=== PATIENT | male | born 1950 | race Caucasian/White ===

== ENCOUNTER 2021-06-09 10:41 | Outpatient (CLI) | payer MEDICARE, SELFPAY ==
[2021-06-09 18:37] LABS: Hematocrit 25.9 % (42.0-52.0); Hemoglobin 7.9 g/dL (14.0-18.0); Mean Corpuscular HGB Conc 30.5 g/dl (32-36); Mean Corpuscular Hemoglobin 35.7 pg (26-34); Mean Corpuscular Volume 117.2 fl (80-100); Mean Platelet Volume 11.4 fl (7.4-10.4); Platelet Count Result 189 k/mm3 (150-375); Red Blood Count 2.21 M/mm3 (4.6-6.20); White Blood Count 2.7 K/mm3 (4.5-10.0)
[2021-06-09 18:59] LABS: Hemoglobin A1C 5.4 % (<5.7)
[2021-06-09 19:03] LABS: Alanine Aminotransferase 27 U/L (4-50); Alkaline Phosphatase 68 U/L (38-126); Anion Gap 9 mmol/L (8-16); Aspartate Amino Transferase 34 U/L (17-59); Bilirubin,Total 0.7 mg/dL (0.2-1.3); Blood Urea Nitrogen 25 mg/dL (9-20); Calcium 9.1 mg/dL (8.4-10.2); Carbon Dioxide 26 mmol/L (22-30); Chloride 102 mmol/L (98-107); Cholesterol 90 mg/dL (0-200); Estimated Glomerular Filt Rate > 60; Glucose 125 mg/dL (65-110); HDL Direct 21 mg/dL; Potassium 4.4 mmol/L (3.4-5.0); Sodium 137 mmol/L (137-145); Triglycerides 170 mg/dL (<150)
[2021-06-09 19:04] LABS: Albumin Level > 6.0 g/dL (3.5-5.1)
[2021-06-09 19:10] LABS: LDL Cholesterol Direct 47 mg/dL
[2021-06-09 19:30] LABS: Prostate Specific Antigen 1.4 ng/mL (< OR = 4.0)
[2021-06-12 14:02] LABS: Amphetamines NEGATIVE ng/mL (<500); Barbiturates NEGATIVE ng/mL (<300); Benzodiazepines NEGATIVE ng/mL (<100); Cocaine Metabolite NEGATIVE ng/mL (<100); Codeine NEGATIVE ng/mL (<50); Hydrocodone 1500 ng/mL (<50); Hydromorphone 290 ng/mL (<50); Marijuana Metabolite NEGATIVE ng/mL (<20); Methadone Metabolite NEGATIVE ng/mL (<100); Morphine NEGATIVE ng/mL (<50); Norhydrocodone 1600 ng/mL (<50); Opiates POSITIVE ng/mL (<100); Oxidant NEGATIVE mcg/mL (<200); pH 6.5 (4.5-9.0)
== END 2021-06-09 10:42 | disposition home or self-care (01) ==
PROVIDERS: PCP Family Medicine; Visit Provider Family Medicine
DX: D64.9 Anemia, unspecified (principal); F41.9 Anxiety disorder, unspecified; K14.6 Glossodynia; K21.9 Gastro-esophageal reflux disease without esophagitis; N52.9 Male erectile dysfunction, unspecified; R53.83 Other fatigue; S00.522A Blister (nonthermal) of oral cavity, initial encounter; X58.XXXA Exposure to other specified factors, initial encounter; Z12.5 Encounter for screening for malignant neoplasm of prostate
CPT/HCPCS: 36415; 80053; 80061; 80299; 83036; 84153; 85027; G0103

== ENCOUNTER 2021-06-24 12:15 | Outpatient (CLI) | payer MEDICARE, SELFPAY ==
[2021-06-24 19:11] LABS: Basophils Percent Auto 0.3 % (0.2-1.2); Eosinophils Percent Auto 0.9 % (0-4.4); Hematocrit 28.2 % (42.0-52.0); Hemoglobin 8.5 g/dL (14.0-18.0); Immature Granulocyte Absolute 0.16 K/mm3 (0.00-0.031); Lymphocytes Absolute Auto 0.62 K/mm3 (0.9-3.2); Lymphocytes Percent Auto 19.3 % (18.3-44.2); Mean Corpuscular HGB Conc 30.1 g/dl (32-36); Mean Corpuscular Hemoglobin 35.4 pg (26-34); Mean Corpuscular Volume 117.5 fl (80-100); Mean Platelet Volume 11.4 fl (7.4-10.4); Monocytes Absolute Auto 0.6 K/mm3 (0.1-0.6); Monocytes Percent Auto 18.9 % (2.6-8.5); Neutrophils Absolute Auto 1.8 K/mm3 (1.3-6.7); Neutrophils Percent Auto 55.6 % (45.5-73.1); Platelet Count Result 172 k/mm3 (150-375); Red Cell Distribution Width 17.9 % (11.5-14.5); White Blood Count 3.2 K/mm3 (4.5-10.0)
[2021-06-24 19:24] LABS: Iron 130 ug/dL (49-181)
[2021-06-24 19:35] LABS: Percent Iron Saturation 37 % (20-50)
[2021-06-24 20:30] LABS: Folic Acid 15.5 ng/mL (2.76->20)
[2021-06-26 13:27] LABS: Erythropoietin (EPO) 244.4 mIU/mL (2.6-18.5)
== END 2021-06-24 12:16 | disposition home or self-care (01) ==
PROVIDERS: PCP Family Medicine; Visit Provider Family Medicine
DX: D64.9 Anemia, unspecified (principal); D72.819 Decreased white blood cell count, unspecified
CPT/HCPCS: 36415; 82607; 82668; 82746; 83540; 83550; 85025

== ENCOUNTER 2021-07-17 11:33 | Outpatient (CLI) | payer MEDICARE, SELFPAY ==
[2021-07-17 18:30] LABS: Basophils Percent Auto 0.5 % (0.2-1.2); Eosinophils Percent Auto 0.5 % (0-4.4); Hematocrit 29.6 % (42.0-52.0); Hemoglobin 8.9 g/dL (14.0-18.0); Immature Granulocyte Absolute 0.35 K/mm3 (0.00-0.031); Lymphocytes Absolute Auto 0.63 K/mm3 (0.9-3.2); Lymphocytes Percent Auto 14.5 % (18.3-44.2); Mean Corpuscular HGB Conc 30.1 g/dl (32-36); Mean Corpuscular Hemoglobin 34.8 pg (26-34); Mean Corpuscular Volume 115.6 fl (80-100); Mean Platelet Volume 12.2 fl (7.4-10.4); Monocytes Absolute Auto 0.5 K/mm3 (0.1-0.6); Neutrophils Absolute Auto 2.8 K/mm3 (1.3-6.7); Neutrophils Percent Auto 64.5 % (45.5-73.1); Platelet Count Result 215 k/mm3 (150-375); Red Blood Count 2.56 M/mm3 (4.6-6.20); Red Cell Distribution Width 18.3 % (11.5-14.5); White Blood Count 4.4 K/mm3 (4.5-10.0)
[2021-07-17 19:45] LABS: Ovalocytes 1+ (NORMAL); Platelet Estimate Adequate (Adequate)
== END 2021-07-17 11:34 | disposition home or self-care (01) ==
PROVIDERS: PCP Family Medicine; Visit Provider Family Medicine
DX: D72.819 Decreased white blood cell count, unspecified (principal); D64.9 Anemia, unspecified
CPT/HCPCS: 36415; 85025

== ENCOUNTER 2021-08-05 07:37 | Outpatient (CLI) | payer MEDICARE, SELFPAY ==
[2021-08-05 17:53] LABS: Hematocrit 29.3 % (42.0-52.0); Hemoglobin 8.8 g/dL (14.0-18.0); Mean Corpuscular Hemoglobin 34.8 pg (26-34); Mean Corpuscular Volume 115.8 fl (80-100); Mean Platelet Volume 12.1 fl (7.4-10.4); Platelet Count Result 183 k/mm3 (150-375); Red Blood Count 2.53 M/mm3 (4.6-6.20); Red Cell Distribution Width 19.4 % (11.5-14.5); White Blood Count 2.8 K/mm3 (4.5-10.0)
[2021-08-05 18:11] LABS: CRP 0.6 mg/dL (<1.0)
[2021-08-05 18:23] LABS: Erythrocyte Sedimentation Rate 33 mm/hr (0-20)
[2021-08-08 09:16] LABS: ANA Cascade Screen Negative (Negative)
== END 2021-08-05 07:38 | disposition home or self-care (01) ==
PROVIDERS: PCP Family Medicine; Visit Provider Family Medicine
DX: D72.819 Decreased white blood cell count, unspecified (principal); R21 Rash and other nonspecific skin eruption; D64.9 Anemia, unspecified; K13.70 Unspecified lesions of oral mucosa
CPT/HCPCS: 36415; 85027; 85652; 86038; 86140

== ENCOUNTER 2021-11-04 07:58 | Outpatient (CLI) | payer MEDICARE, SELFPAY ==
[2021-11-04 17:55] LABS: Basophils Percent Auto 0.7 % (0.2-1.2); Eosinophils Percent Auto 0.7 % (0-4.4); Hematocrit 28.7 % (42.0-52.0); Hemoglobin 8.3 g/dL (14.0-18.0); Immature Granulocyte Absolute 0.14 K/mm3 (0.00-0.031); Immature Granulocyte Percent A 5.2 % (0-0.5); Lymphocytes Absolute Auto 0.51 K/mm3 (0.9-3.2); Lymphocytes Percent Auto 18.9 % (18.3-44.2); Mean Corpuscular HGB Conc 28.9 g/dl (32-36); Mean Corpuscular Hemoglobin 34.7 pg (26-34); Mean Corpuscular Volume 120.1 fl (80-100); Mean Platelet Volume 11.5 fl (7.4-10.4); Monocytes Absolute Auto 0.6 K/mm3 (0.1-0.6); Monocytes Percent Auto 20.4 % (2.6-8.5); Neutrophils Absolute Auto 1.5 K/mm3 (1.3-6.7); Neutrophils Percent Auto 54.1 % (45.5-73.1); Platelet Count Result 191 k/mm3 (150-375); Red Blood Count 2.39 M/mm3 (4.6-6.20); Red Cell Distribution Width 19.6 % (11.5-14.5); White Blood Count 2.7 K/mm3 (4.5-10.0)
== END 2021-11-04 07:59 | disposition home or self-care (01) ==
LOC: ANHBWCLAB 07:59
PROVIDERS: PCP Family Medicine; Visit Provider Family Medicine
DX: D64.9 Anemia, unspecified (principal)
CPT/HCPCS: 36415; 85025

== ENCOUNTER 2021-12-22 10:47 | Outpatient (CLI) | payer MEDICARE, SELFPAY ==
[2021-12-22 19:06] LABS: Basophils Percent Auto 0.4 % (0.2-1.2); Eosinophils Percent Auto 0.8 % (0-4.4); Hematocrit 30.6 % (42.0-52.0); Hemoglobin 9.2 g/dL (14.0-18.0); Immature Granulocyte Absolute 0.14 K/mm3 (0.00-0.031); Immature Granulocyte Percent A 5.8 % (0-0.5); Immature Reticulocyte Fraction 26.4 % (3.0-15.9); Lymphocytes Absolute Auto 0.49 K/mm3 (0.9-3.2); Lymphocytes Percent Auto 20.2 % (18.3-44.2); Mean Corpuscular HGB Conc 30.1 g/dl (32-36); Mean Corpuscular Hemoglobin 34.8 pg (26-34); Mean Corpuscular Volume 115.9 fl (80-100); Mean Platelet Volume 11.6 fl (7.4-10.4); Monocytes Absolute Auto 0.6 K/mm3 (0.1-0.6); Monocytes Percent Auto 22.7 % (2.6-8.5); Neutrophils Absolute Auto 1.2 K/mm3 (1.3-6.7); Neutrophils Percent Auto 50.1 % (45.5-73.1); Platelet Count Result 218 k/mm3 (150-375); Red Blood Count 2.64 M/mm3 (4.6-6.20); Red Cell Distribution Width 17.8 % (11.5-14.5); Reticulocyte Hemoglobin Conten 34.3 pg (28.2-35.7); Reticulocyte Percent 2.56 % (0.7-4.3); Reticulocytes Absolute 0.07 B/L (32.2-175.7); White Blood Count 2.4 K/mm3 (4.5-10.0)
[2021-12-24 11:43] LABS: Haptoglobin <8 mg/dL (43-212)
[2021-12-30 11:56] LABS: Reference Lab Test Result Negative
== END 2021-12-22 10:48 | disposition home or self-care (01) ==
PROVIDERS: PCP Family Medicine; Visit Provider Family Medicine
DX: D64.9 Anemia, unspecified (principal); D72.819 Decreased white blood cell count, unspecified
CPT/HCPCS: 36415; 83010; 85025; 85046; 86880

== ENCOUNTER 2022-04-13 08:39 | Outpatient (CLI) | payer MEDICARE, SELFPAY ==
--- NOTE | ~2022-04-13 | XR_ITS ---
EXAMINATION: XR chest 2V DATE: 04/13/2022 09:09 INDICATION: Abnormal weight loss TECHNIQUE: PA and lateral views of the chest were obtained. COMPARISON: None FINDINGS: The lungs are clear with no focal airspace opacities, pulmonary edema, pleural effusion or pneumothor ax. The cardiomediastinal silhouette is normal. Multiple healed old bilateral rib fractures. Reverse right total shoulder arthroplasty. Postoperative changes at the cervical spine with anterior spinal f usion with anterior plate and screw fixation at a couple levels the mid and lower cervical spine. Sev ere mid thoracic spondylosis with mild anterior wedging of a few mid and lower thoracic vertebral bod ies. IMPRESSION: 1. No acute cardiopulmonary disease. Reviewed, dictated and finalized at location A.
[2022-04-13 18:41] LABS: Hematocrit 27.9 % (42.0-52.0); Hemoglobin 8.2 g/dL (14.0-18.0); Mean Corpuscular HGB Conc 29.4 g/dl (32-36); Mean Corpuscular Hemoglobin 34.7 pg (26-34); Mean Corpuscular Volume 118.2 fl (80-100); Mean Platelet Volume 12.1 fl (7.4-10.4); Platelet Count Result 163 k/mm3 (150-375); Red Blood Count 2.36 M/mm3 (4.6-6.20); Red Cell Distribution Width 19.1 % (11.5-14.5); White Blood Count 2.9 K/mm3 (4.5-10.0)
[2022-04-13 19:22] LABS: Hepatitis B Surface Antigen Negative (Negative)
[2022-04-13 19:28] LABS: HAV RESULT Negative (Negative); Hepatitis B Core IgM Result Negative (Negative)
[2022-04-13 19:40] LABS: Hepatitis C Virus Antibody Negative (Negative)
[2022-04-13 19:51] LABS: Vitamin D 25 Hydroxy 65.4 ng/mL
[2022-04-13 20:38] LABS: Anisocytosis 2+ (NORMAL); Band Neutrophils Percent 12 % (0-6); Basophils Absolute Manual 0.02 K/mm3 (0.0-0.1); Basophils Percent Manual 1 % (0-1); Lymphocytes Absolute Manual 1.27 K/mm3 (1.1-4.5); Monocytes Absolute Manual 0.23 K/mm3 (0.1-0.90); Monocytes Percent Manual 8 % (3-9); Neutrophils Absolute Manual 1.36 K/mm3 (1.3-6.7); Neutrophils Percent Manual 35 % (46-73); Platelet Estimate Adequate (Adequate); Total Cells Counted 100
[2022-04-15 15:18] LABS: HIV 1 2 Ag Ab 4th Gen w Rflxs Non-reactive (Non-reactive)
[2022-04-16 15:49] LABS: Testosterone Free 38.1 pg/mL (30.0-135.0); Testosterone Total 254 ng/dL (250-1100)
== END 2022-04-13 08:40 | disposition home or self-care (01) ==
PROVIDERS: PCP Family Medicine; Visit Provider Family Medicine
DX: R63.4 Abnormal weight loss (principal); R53.1 Weakness; R53.83 Other fatigue; D64.9 Anemia, unspecified; Z79.899 Other long term (current) drug therapy
CPT/HCPCS: 36415; 71046; 80074; 82306; 84402; 84403; 84443; 85025; 87389

== ENCOUNTER 2022-05-09 14:09 | Emergency (ER) | payer MEDICARE, SELFPAY ==
[2022-05-09 14:13] VITALS: BP 144/71; PULSE 76; RESP 16; TEMP 36.3; O2SAT 99
--- NOTE | 2022-05-09 14:13 | ED.DENTAL ---
HPI - Dental/Oral General Chief complaint: Ear Stated complaint: under tongue right side hard lump Time Seen by Provider: 05/09/22 14:13 Source: patient and RN notes reviewed History of Present Illness HPI Narrative: Patient 71-year-old male presents the urgent care with complaints of a hard painful lump under the right side of the tongue. Patient states is been there approximately 2 weeks and has not changed in size. States that he is having a lot of pain when swallowing or speaking. Patient has used lidocaine on the area. Denies of any recent dental work but states he has had a tooth pulled within the last few months. Patient has not seen a dentist since then. Denies of any fevers. Denies of any bad taste in the mouth. Denies any known injury to the tongue. No other acute complaints. No acute distress noted. Patient aware of the plan of care. Some parts of this dictation were generated by voice recognition software and may contain typographical and/or grammatical inaccuracies. Related Data Home Medications Medication Instructions Recorded Confirmed hydrocodone 10 mg-acetaminophen 2 tablet PO Q6H PRN 07/16/19 12/22/21 325 mg tablet bupropion HCl 150 mg 24 hr tablet, 150 mg PO QAM 08/20/19 12/22/21 extended release duloxetine 60 mg capsule,delayed 60 mg PO DAILY 08/20/19 12/22/21 release metoclopramide HCl 10 mg tablet 10 mg PO Q6H PRN Nausea And 08/20/19 12/22/21 Vomiting tizanidine 4 mg tablet 4 mg PO TID PRN Muscle Spasticity 08/20/19 12/22/21 Allergies Allergy/AdvReac Type Severity Reaction Status Date / Time No Known Allergies Allergy Verified 05/09/22 14:18 Review of Systems Review of Systems: CONSTITUTIONAL: Denies fever, chills, or sweats. EYES: Denies visual changes, redness, or discharge. ENT: Denies rhinorrhea, congestion, sore throat, or otalgia. Reports of a painful sore under the tongue CARDIOVASCULAR: Denies chest pain, palpitations, or edema. RESPIRATORY: Denies cough or dyspnea. GASTROINTESTINAL: Denies abdominal pain, nausea, vomiting, or diarrhea. GENITOURINARY: Denies dysuria or hematuria. SKIN: Denies rash or itching. MUSCULOSKELETAL: Denies back pain, joint pain, or myalgia. NEUROLOGIC: Denies headache, numbness, or weakness. All other systems reviewed are negative, except as documented in HPI. [facility] [place] Past Medical History Medical History Anemia 73.09 Anxiety Anxiety and depression Arthritis Encounter for long-term (current) use of other medications Erectile dysfunction Fatigue GERD (gastroesophageal reflux disease) Hypersomnolence Surgical History Surgical History H/O cervical spine surgery History of lumbar spinal fusion History of right shoulder replacement History of total right knee replacement Hx of cholecystectomy Family History Family History Mother Family history of malignant neoplasm Grandparent Family history of malignant neoplasm Sibling Family history of malignant neoplasm Father Heart failure Social History Social History Smoking packs per day: 1 Smoking cigarettes per day: 20.0 Years smoked: 12 Smoking pack-years: 12.00 Smoking status: Former smoker Second hand tobacco smoke exposure: No Smoking end date: 08/08/78 Alcohol intake: current Substance use: never Comments At the time of my signature, I reviewed and agree with the nursing past medical, surgical, social, and family history. There is no relevant family history pertinent to the patient complaint. Exam Narrative: GENERAL: This is a well-nourished, well-developed patient, in no apparent distress. HEAD: normocephalic, atraumatic. EYES: PERRL. Sclera clear/white. Vision is grossly intact. EARS: External ears normal NOSE: External nose normal
== END 2022-05-09 14:32 | disposition home or self-care (01) ==
PROVIDERS: Emergency Provider Nurse Practitioner Family; PCP Family Medicine
DX: K14.6 Glossodynia (principal); M19.90 Unspecified osteoarthritis, unspecified site; K21.9 Gastro-esophageal reflux disease without esophagitis; F41.9 Anxiety disorder, unspecified; F32.A Depression, unspecified
CPT/HCPCS: 99211; G0463

== ENCOUNTER 2022-05-11 08:27 | Outpatient (CLI) | payer MEDICARE, SELFPAY ==
[2022-05-11 18:33] LABS: Basophils Percent Auto 0.5 % (0.2-1.2); Eosinophils Percent Auto 0.5 % (0-4.4); Hematocrit 26.9 % (42.0-52.0); Immature Granulocyte Absolute 0.09 K/mm3 (0.00-0.031); Immature Granulocyte Percent A 4.4 % (0-0.5); Immature Platelet Fraction Pct 9.8 % (0.9-11.2); Lymphocytes Absolute Auto 0.44 K/mm3 (0.9-3.2); Lymphocytes Percent Auto 21.6 % (18.3-44.2); Mean Corpuscular HGB Conc 29.7 g/dl (32-36); Mean Corpuscular Hemoglobin 35.6 pg (26-34); Mean Corpuscular Volume 119.6 fl (80-100); Mean Platelet Volume 11.7 fl (7.4-10.4); Monocytes Absolute Auto 0.5 K/mm3 (0.1-0.6); Monocytes Percent Auto 22.5 % (2.6-8.5); Neutrophils Percent Auto 50.5 % (45.5-73.1); Platelet Count Result 148 k/mm3 (150-375); Red Blood Count 2.25 M/mm3 (4.6-6.20)
[2022-05-11 18:37] LABS: Appearance Urine Clear (Clear); Bilirubin Urine 1+ (Negative); Blood Urine Negative (Negative); Color Urine Yellow (Yellow); Glucose Urine UA Negative (Negative); Ketones Urine Trace mg/dL (Negative); Leukocyte Esterase Ur Negative LEU/UL (NEGATIVE); Nitrate Urine Negative (Negative); Protein Urine 1+ mg/dL (Negative); Specific Grav Ur 1.025 (1.001-1.035); Urobilinogen Urine 0.2 mg/dL (<2.0); pH Urine 5.5 (5.0-9.0)
[2022-05-11 18:45] LABS: Mucus Urine Rare /lpf; RBC Urine 0-2 /hpf (0-2); Squamous Epithelial Cell Urine Rare /hpf (Few); WBC Urine 0-3 /hpf (0-3)
[2022-05-11 18:46] LABS: Add Urine Microscopic? YES; CRP < 0.5 mg/dL (<1.0); Lactate Dehydrogenase 322 U/L (120-246)
[2022-05-11 19:23] LABS: Anisocytosis 2+ (NORMAL); Hypochromasia 1+ (NORMAL)
[2022-05-11 19:24] LABS: Erythrocyte Sedimentation Rate 45 mm/hr (0-20); Schistocytes None Seen (NORMAL)
== END 2022-05-11 08:28 | disposition home or self-care (01) ==
PROVIDERS: PCP Family Medicine; Visit Provider Family Medicine
DX: R53.1 Weakness (principal); D64.9 Anemia, unspecified
CPT/HCPCS: 36415; 81001; 83615; 85025; 85055; 85652; 86140

== ENCOUNTER 2022-06-24 10:17 | Outpatient (CLI) | payer MEDICARE, SELFPAY ==
[2022-06-24 19:13] LABS: Basophils Percent Auto 0.8 % (0.2-1.2); Eosinophils Percent Auto 0.8 % (0-4.4); Hematocrit 24.9 % (42.0-52.0); Hemoglobin 7.5 g/dL (14.0-18.0); Immature Granulocyte Absolute 0.19 K/mm3 (0.00-0.031); Immature Granulocyte Percent A 7.5 % (0-0.5); Lymphocytes Absolute Auto 0.44 K/mm3 (0.9-3.2); Lymphocytes Percent Auto 17.4 % (18.3-44.2); Mean Corpuscular HGB Conc 30.1 g/dl (32-36); Mean Corpuscular Hemoglobin 34.7 pg (26-34); Mean Corpuscular Volume 115.3 fl (80-100); Mean Platelet Volume 12.2 fl (7.4-10.4); Monocytes Absolute Auto 0.5 K/mm3 (0.1-0.6); Monocytes Percent Auto 17.8 % (2.6-8.5); Neutrophils Absolute Auto 1.4 K/mm3 (1.3-6.7); Neutrophils Percent Auto 55.7 % (45.5-73.1); Platelet Count Result 160 k/mm3 (150-375); Red Blood Count 2.16 M/mm3 (4.6-6.20); Red Cell Distribution Width 18.5 % (11.5-14.5); White Blood Count 2.5 K/mm3 (4.5-10.0)
[2022-06-24 19:23] LABS: Iron 70 ug/dL (49-181)
[2022-06-24 19:27] LABS: Alanine Aminotransferase 34 U/L (6-50); Albumin Level 4.7 g/dL (3.5-5.1); Alkaline Phosphatase 83 U/L (38-126); Anion Gap 12 mmol/L (8-16); Aspartate Amino Transferase 48 U/L (17-59); Bilirubin,Total 0.7 mg/dL (0.2-1.3); Blood Urea Nitrogen 15 mg/dL (9-20); Calcium 9.1 mg/dL (8.4-10.2); Carbon Dioxide 24 mmol/L (22-30); Chloride 104 mmol/L (98-107); Estimated Glomerular Filt Rate > 60; Glucose 107 mg/dL (65-110); Lactate Dehydrogenase 347 U/L (120-246); Potassium 3.8 mmol/L (3.4-5.0); Sodium 140 mmol/L (137-145)
[2022-06-24 19:28] LABS: INR 1.3; Prothrombin Time 15.4 Seconds (11.1-14.7)
[2022-06-24 19:37] LABS: Percent Iron Saturation 20 % (20-50)
[2022-06-24 20:31] LABS: Folic Acid 18.5 ng/mL (2.76->20)
[2022-06-24 20:59] LABS: Platelet Estimate Adequate (Adequate); Schistocytes None Seen (NORMAL)
[2022-06-24 21:00] LABS: Anisocytosis 2+ (NORMAL); Hypochromasia 1+ (NORMAL); Macrocytosis 1+ (NORMAL)
[2022-06-28 00:49] LABS: Methylmalonic Acid 141 nmol/L (87-318)
== END 2022-06-24 10:18 | disposition home or self-care (01) ==
PROVIDERS: PCP Family Medicine; Visit Provider Internal Medicine Hematology & Oncology
DX: D61.818 Other pancytopenia (principal); Z79.01 Long term (current) use of anticoagulants; D64.9 Anemia, unspecified
CPT/HCPCS: 36415; 80053; 82607; 82728; 82746; 83540; 83550; 83615; 83921; 84443; 85025; 85610

== ENCOUNTER 2022-06-29 01:31 | Day surgery (SDC) | payer MEDICARE, SELFPAY ==
[2022-06-28 15:16] VITALS: BMI 28.1
--- NOTE | ~2022-06-29 | BM_ITS ---
EXAMINATION: CCL bone marrow asp w bx diag DATE: 06/29/2022 12:29 INDICATION: Pancytopenia. TECHNIQUE: A time-out was performed to verify the patient's name, date of , and procedure to b e performed. The procedure including the risks, benefits, and alternatives was discussed with the pat ient. Risks discussed included bleeding and infection. The patient understood the risks and agreed to proceed. The skin overlying the left ilium was prepped and draped in usual sterile fashion. Anesth etic was administered with 1% lidocaine subcutaneously. Moderate sedation was achieved with 1 mg Vers ed IV and 100 mcg fentanyl IV. An 11 gauge needle was inserted into the ilium with fluoroscopic guid ance. Bone marrow was aspirated. An 8 gauge needle was then inserted into the ilium with fluoroscopic guidance. A core bone marrow biopsy was obtained. There were no immediate complications. Fluoroscopy exposure time was 0.0 minutes. The total number of images was 9. FINDINGS: Real-time fluoroscopy demonstrates a marker overlying the left posterior superior iliac spi ne. IMPRESSION: 1. Fluoro-guided bone marrow aspiration. 2. Fluoro-guided bone marrow core biopsy. Reviewed, dictated and finalized at location A. [place] [employer] ANALY[employer]
[2022-06-29 08:26] VITALS: BP 146/68; PULSE 80; RESP 16; TEMP 36.8; O2SAT 100; BMI 27.3
[2022-06-29 08:27] LABS: Hematocrit 26.3 % (42.0-52.0); Hemoglobin 7.9 g/dL (14.0-18.0); Mean Corpuscular Hemoglobin 34.8 pg (26-34); Mean Corpuscular Volume 115.9 fl (80-100); Mean Platelet Volume 11.7 fl (7.4-10.4); Platelet Count Result 154 k/mm3 (150-375); Red Blood Count 2.27 M/mm3 (4.6-6.20); Red Cell Distribution Width 19.2 % (11.5-14.5); White Blood Count 2.9 K/mm3 (4.5-10.0)
[2022-06-29 08:38] LABS: INR 1.2; Prothrombin Time 15.2 Seconds (11.1-14.7)
[2022-06-29 09:16] LABS: Band Neutrophils Percent 24 % (0-6); Metamyelocytes Percent 1 %; Monocytes Absolute Manual 0.52 K/mm3 (0.1-0.90); Monocytes Percent Manual 18 % (3-9); Neutrophils Absolute Manual 1.74 K/mm3 (1.3-6.7); Neutrophils Percent Manual 36 % (46-73); Total Cells Counted 100
[2022-06-29 09:17] LABS: Hypochromasia 3+ (NORMAL); Platelet Estimate Adequate (Adequate); Schistocytes 1+ (NORMAL)
[2022-06-29 09:18] LABS: Anisocytosis 2+ (NORMAL); Poikilocytosis 1+ (NORMAL); Tear Drop Cells 1+ (NORMAL)
--- NOTE | 2022-06-29 10:07 | WPDMODSED ---
Moderate Sedation Note-Pt Data Patient Data Diagnosis: Pancytopenia. Present Complaint: Pancytopenia. Procedure to be performed/Plan: Fluoro-guided bone marrow biopsy of ilium. Allergies Allergy/AdvReac Type Severity Reaction Status Date / Time No Known Allergies Allergy Verified 06/29/22 08:19 Home Medications Medication Instructions Recorded Confirmed Type hydrocodone 10 mg-acetaminophen 2 tablet PO Q6H PRN Pain 07/16/19 06/28/22 History 325 mg tablet bupropion HCl 150 mg 24 hr tablet, 150 mg PO QAM 08/20/19 06/28/22 History extended release metoclopramide HCl 10 mg tablet 10 mg PO Q6H PRN Nausea And 08/20/19 06/28/22 History Vomiting tizanidine 4 mg tablet 4 mg PO TID PRN Muscle Spasticity 08/20/19 06/28/22 History lidocaine HCl 2 % mucosal solution 1 applic mucous membrane QID PRN 08/04/21 06/28/22 Rx (Lidocaine Viscous) pain #100 mL albuterol sulfate 90 mcg/actuation 1 inh inhalation Q4H PRN shortness 11/04/21 06/28/22 Rx aerosol inhaler of breath or wheezing #8.5 grams alprazolam 0.25 mg tablet 0.25 mg PO HS PRN Anxiety #30 tabs 05/17/22 06/28/22 Rx acetaminophen 500 mg tablet 1,000 mg PO Q6H PRN Pain 06/28/22 06/28/22 History biotin 10,000 mcg capsule 10,000 mcg PO DAILY 06/28/22 06/28/22 History cholecalciferol (vitamin D3) 25 25 mcg PO DAILY 06/28/22 06/28/22 History mcg (1,000 unit) tablet (Vitamin D3) gabapentin 600 mg tablet 600 mg PO DAILY PRN neuropathy 06/28/22 06/28/22 History ibuprofen 200 mg tablet 200 mg PO Q6H PRN Pain 06/28/22 06/28/22 History vitamin B complex 1 cap PO DAILY 06/28/22 06/28/22 History Sedation/Anesthesia: No previous sedation/anesthesia problems (including family history). [facility] Past Medical History Medical History Anemia 73.09 Anxiety Anxiety and depression Arthritis Encounter for long-term (current) use of other medications Erectile dysfunction Fatigue GERD (gastroesophageal reflux disease) Hypersomnolence Surgical History Surgical History H/O cervical spine surgery History of lumbar spinal fusion History of right shoulder replacement History of total right knee replacement Hx of cholecystectomy Family History Family History Mother Family history of malignant neoplasm Grandparent Family history of malignant neoplasm Sibling Family history of malignant neoplasm Father Heart failure Social History Social History Smoking packs per day: 1 Smoking cigarettes per day: 20.0 Years smoked: 12 Smoking pack-years: 12.00 Smoking status: Former smoker Tobacco type: cigarettes Second hand tobacco smoke exposure: No Smoking end date: 08/08/78 Alcohol intake: current Drinks per week: 1 Alcohol use details: 1 mixed drink/beer per week Substance use: never Substance use type: does not use Living arrangements: with family Additional living arrangements comments: lives with grandjennifer Leigh. Spiritual care concerns: No Mod Sed Physical Exam Physical Exam Pre Procedural Exam: Normal: Appearance, Lungs, Heart Rate and Heart Rhythm and Variation: Abdomen (Abdominal tenderness, left worse than right.) Hours since solid foods: 12 Hours since liquid intake: 12 Mallampati Classification: class 1 Internal Medicine - PN: Obj Da Vital Signs Vital Signs: Vital Signs - 24 hr 06/29/22 08:26 Temperature 36.8 C Pulse Rate 80 Respiratory Rate 16 Blood Pressure 146/68 H Pulse Oximetry 100 Oxygen Delivery Room Air Labs CBC & Chem 7: 06/29/22 08:23 Labs: Laboratory Results - last 24 hr 06/29/22 06/29/22 08:23 08:23 WBC 2.9 L RBC 2.27 L Hgb 7.9 L Hct 26.3 L MCV 115.9 H MCH 34.8 H MCHC 30.0 L RDW 19.2 H Plt Count 154 MPV 11.7 H Immature Gran %
[2022-06-29 10:54] VITALS: BP 125/93; PULSE 80; RESP 16; O2SAT 97
[2022-06-29 11:00] VITALS: BP 122/70; PULSE 74; RESP 16; O2SAT 98
[2022-06-29 11:15] VITALS: BP 113/70; PULSE 80; RESP 17; O2SAT 96
[2022-06-29 11:30] VITALS: BP 125/71; PULSE 77; RESP 19; O2SAT 97
[2022-06-29 11:45] VITALS: BP 120/70; PULSE 78; RESP 20; O2SAT 97
== END 2022-06-29 12:00 | disposition home or self-care (01) ==
PROVIDERS: PCP Family Medicine; Visit Provider Radiology Diagnostic Radiology
DX: D61.818 Other pancytopenia (principal); F41.8 Other specified anxiety disorders; Z79.51 Long term (current) use of inhaled steroids; Z98.1 Arthrodesis status; Z87.891 Personal history of nicotine dependence; Z79.899 Other long term (current) drug therapy
CPT/HCPCS: 36415; 38222; 85025; 85610; 88184; 88185; 88305; 88311; 88313; J1642; J2250; J3010; J7040

== ENCOUNTER 2022-06-30 07:46 | Outpatient (CLI) | payer MEDICARE, SELFPAY ==
--- NOTE | ~2022-06-30 | US_ITS ---
EXAMINATION: US abdomen complete DATE: 06/30/2022 08:26 INDICATION: Pancytopenia. TECHNIQUE: Multiple grayscale and Doppler ultrasound images of the abdomen were obtained. COMPARISON: None FINDINGS: The pancreas is obscured by bowel gas. The liver is normal without focal lesion. There is n ormal flow in main portal vein. The kidneys are normal in size. Abdominal aorta is normal in caliber. The inferior vena cava is normal. The gallbladder is absent. The common duct is dilated to 11 mm. Th ere is splenomegaly measuring 23.1 cm. There is a 3.9 cm cyst in the gallbladder fossa. IMPRESSION: 1. Severe splenomegaly. 2. Mildly dilated common duct status post cholecystectomy. 3. 3.9 cm cyst in the gallbladder fossa. Reviewed, dictated and finalized at location A. [employer]ELOP[employer] INTERN
== END 2022-06-30 07:47 | disposition home or self-care (01) ==
LOC: ANHIMG 07:47
PROVIDERS: PCP Family Medicine; Visit Provider Internal Medicine Hematology & Oncology
DX: D61.818 Other pancytopenia (principal); R16.1 Splenomegaly, not elsewhere classified; Z90.49 Acquired absence of other specified parts of digestive tract
CPT/HCPCS: 76700

== ENCOUNTER 2022-07-12 09:08 | Outpatient (CLI) | payer MEDICARE, SELFPAY ==
[2022-07-16 13:36] LABS: Angiotensin Converting Enzyme 28 U/L (9-67)
[2022-07-18 11:37] LABS: BCR/abl Prior Result Not Given
[2022-07-18 12:23] LABS: BCR/abl P190 Not Detected; BCR/abl P210 Not Detected
[2022-07-18 12:24] LABS: BCR/abl P190 Chg YES; BCR/abl P210 Chg YES
[2022-07-21 13:31] LABS: Clinical Indication Not Given; Exon 14; Gene JAK2; JAK2 V617F Mutation Detected (Not Detected); Mutation Type missense; Specimen Source Blood
== END 2022-07-12 09:09 | disposition home or self-care (01) ==
LOC: ANHLAB 09:17
PROVIDERS: PCP Family Medicine; Visit Provider Internal Medicine Hematology & Oncology
DX: R16.1 Splenomegaly, not elsewhere classified (principal)
CPT/HCPCS: 36415; 81206; 81207; 81270; 82164

== ENCOUNTER 2022-09-16 15:21 | Outpatient (CLI) | payer MEDICARE, SELFPAY ==
[2022-09-16 15:32] LABS: Hemoglobin 7.6 g/dL (14.0-18.0); Mean Corpuscular HGB Conc 30.4 g/dl (32-36); Mean Corpuscular Hemoglobin 33.9 pg (26-34); Mean Corpuscular Volume 111.6 fl (80-100); Mean Platelet Volume 11.8 fl (7.4-10.4); Platelet Count Result 164 k/mm3 (150-375); Red Blood Count 2.24 M/mm3 (4.6-6.20); Red Cell Distribution Width 18.3 % (11.5-14.5); White Blood Count 3.7 K/mm3 (4.5-10.0)
[2022-09-16 15:40] LABS: Band Neutrophils Percent 19 % (0-6); Eosinophils Absolute Manual 0.14 K/mm3 (0.02-0.5); Eosinophils Percent Manual 4 % (0-4); Hypochromasia 1+ (NORMAL); Lymphocytes Absolute Manual 0.48 K/mm3 (1.1-4.5); Metamyelocytes Percent 6 %; Monocytes Absolute Manual 0.44 K/mm3 (0.1-0.90); Monocytes Percent Manual 12 % (3-9); Neutrophils Percent Manual 46 % (46-73); Platelet Estimate Adequate (Adequate); Schistocytes None Seen (NORMAL); Stomatocytes 1+ (NORMAL); Total Cells Counted 100
[2022-09-16 15:41] LABS: Anisocytosis 1+ (NORMAL); Tear Drop Cells 1+ (NORMAL)
[2022-09-16 15:42] LABS: Poikilocytosis 2+ (NORMAL)
== END 2022-09-16 15:22 | disposition home or self-care (01) ==
LOC: ANHLAB 15:22
PROVIDERS: PCP Family Medicine; Visit Provider Internal Medicine Hematology & Oncology
DX: D61.818 Other pancytopenia (principal); R16.1 Splenomegaly, not elsewhere classified
CPT/HCPCS: 36415; 85025

== ENCOUNTER 2022-09-17 09:35 | Outpatient (RCR) | payer MEDICARE, SELFPAY ==
[2022-09-17] MEDS: ACETAMINOPHEN 325 MG TABLET 650 MG PO (10:59)
[2022-09-17] MEDS: SODIUM CHLORIDE 0.9% IV 250 ML 30 ML IV CONT (11:00)
[2022-09-17] MEDS: diphenhydrAMINE HCl CAP 25 MG CAPSULE PO (11:00)
[2022-09-17 11:32] VITALS: BP 114/67; PULSE 77; RESP 16; TEMP 37.1; O2SAT 92
[2022-09-17 11:47] VITALS: BP 122/73; PULSE 86; RESP 16; TEMP 37; O2SAT 92
[2022-09-17 12:47] VITALS: BP 152/70; PULSE 81; RESP 16; TEMP 37; O2SAT 98
[2022-09-17 13:47] VITALS: BP 135/65; PULSE 77; RESP 16; TEMP 37.3; O2SAT 97
[2022-09-17 14:15] VITALS: BP 139/72; PULSE 88; RESP 18; TEMP 37; O2SAT 95
== END 2022-12-16 23:59 | disposition home or self-care (01) ==
LOC: ANHCPCTRAN 09:35
PROVIDERS: PCP Family Medicine; Visit Provider Internal Medicine Hematology & Oncology
DX: D61.818 Other pancytopenia (principal)
CPT/HCPCS: 36415; 36430; 86850; 86900; 86901; 86923; A9270; J7050; P9016

== ENCOUNTER 2022-11-08 08:54 | Emergency (ER) | payer MEDICARE, SELFPAY ==
[2022-11-08 08:58] VITALS: BP 151/67; PULSE 83; RESP 20; TEMP 36.7; O2SAT 100
--- NOTE | 2022-11-08 09:01 | ED.SKABFB ---
HPI - Skin/Abscess/Foreign Bdy General Chief complaint: Skin/Abscess/Foreign Body Stated complaint: Skin Sore/ Left Hand Time Seen by Provider: 11/08/22 09:01 Source: patient and RN notes reviewed History of Present Illness HPI narrative: Patient will 72-year-old male who presents to urgent care with complaints of a sore to the left dorsal aspect of the hand. Patient states that he scraped/cut it while working on a car 2 and half weeks ago. Patient states that the area has drained and he has been using Neosporin. States that it seems to have gotten slightly better but is still causing pain and swelling to the hand. Patient states that he does not have a dominant hand, he is ambidextrous. Patient is currently on chemotherapy for ?a blood disorder?. Denies any fevers, nausea or vomiting. Patient is not up-to-date on his tetanus. No other acute complaints. No acute distress noted. Patient aware of the plan of care. Some parts of this dictation were generated by voice recognition software and may contain typographical and/or grammatical inaccuracies. Related Data Home Medications Medication Instructions Recorded Confirmed hydrocodone 10 mg-acetaminophen 2 tablet PO Q6H PRN Pain 07/16/19 06/28/22 325 mg tablet bupropion HCl 150 mg 24 hr tablet, 150 mg PO QAM 08/20/19 06/28/22 extended release metoclopramide HCl 10 mg tablet 10 mg PO Q6H PRN Nausea And 08/20/19 06/28/22 Vomiting tizanidine 4 mg tablet 4 mg PO TID PRN Muscle Spasticity 08/20/19 06/28/22 acetaminophen 500 mg tablet 1,000 mg PO Q6H PRN Pain 06/28/22 06/28/22 biotin 10,000 mcg capsule 10,000 mcg PO DAILY 06/28/22 06/28/22 cholecalciferol (vitamin D3) 25 25 mcg PO DAILY 06/28/22 06/28/22 mcg (1,000 unit) tablet (Vitamin D3) ibuprofen 200 mg tablet 200 mg PO Q6H PRN Pain 06/28/22 06/28/22 vitamin B complex 1 cap PO DAILY 06/28/22 06/28/22 Allergies Allergy/AdvReac Type Severity Reaction Status Date / Time No Known Allergies Allergy Verified 11/08/22 09:10 Review of Systems Review of Systems: CONSTITUTIONAL: Denies fever, chills, or sweats. EYES: Denies visual changes, redness, or discharge. ENT: Denies rhinorrhea, congestion, sore throat, or otalgia. CARDIOVASCULAR: Denies chest pain, palpitations, or edema. RESPIRATORY: Denies cough or dyspnea. GASTROINTESTINAL: Denies abdominal pain, nausea, vomiting, or diarrhea. GENITOURINARY: Denies dysuria or hematuria. SKIN: Reports of a sore to the top of the left hand with redness and swelling MUSCULOSKELETAL: Denies back pain, joint pain, or myalgia. NEUROLOGIC: Denies headache, numbness, or weakness. All other systems reviewed are negative, except as documented in HPI. [facility] Past Medical History Medical History Anemia 73.09 Anxiety Anxiety and depression Arthritis Encounter for long-term (current) use of other medications Erectile dysfunction Fatigue GERD (gastroesophageal reflux disease) Hypersomnolence Surgical History Surgical History H/O cervical spine surgery History of lumbar spinal fusion History of right shoulder replacement History of total right knee replacement Hx of cholecystectomy Family History Family History Mother Family history of malignant neoplasm Grandparent Family history of malignant neoplasm Sibling Family history of malignant neoplasm Father Heart failure Social History Social History (Updated 09/23/22 @ 08:45 by Rosalba Roy MA) Smoking packs per day: 1 Smoking cigarettes per day: 20.0 Years smoked: 12 Smoking pack-years: 12.00 Smoking status: Former smoker Tobacco type: cigarettes Second hand tobacco smoke exposure: No Smoking end date: 08/08/78 Alcohol intake: current Drinks per week: 1 Alcohol use details: 1 mixed drink/beer per week Substance use: nev
[2022-11-08] MEDS: TETANUS,DIPHTHERIA,AC PERTUSSIS ADULT (0.5 ML) BOOSTRIX IM (09:20)
== END 2022-11-08 09:32 | disposition home or self-care (01) ==
PROVIDERS: Emergency Provider Nurse Practitioner Family; PCP Family Medicine
DX: L03.114 Cellulitis of left upper limb (principal); S61.402A Unspecified open wound of left hand, initial encounter; W45.8XXA Other foreign body or object entering through skin, initial encounter; Z23 Encounter for immunization; M19.90 Unspecified osteoarthritis, unspecified site; K21.9 Gastro-esophageal reflux disease without esophagitis; F41.9 Anxiety disorder, unspecified; F32.A Depression, unspecified; D75.9 Disease of blood and blood-forming organs, unspecified; Z79.60 Long term (current) use of unspecified immunomodulators and immunosuppressants
CPT/HCPCS: 90471; 90715; 99213; G0463

== ENCOUNTER 2023-03-31 11:42 | Emergency (ER) | payer MEDICARE, SELFPAY ==
[2023-03-31 11:48] VITALS: BP 129/58; PULSE 81; RESP 16; TEMP 36.3; O2SAT 98
--- NOTE | 2023-03-31 11:56 | ED.GENADULT ---
HPI - General Adult General Chief complaint: Dental/Oral Stated complaint: Mouth Sore/Toothache/Sore Throat Source: patient and RN notes reviewed History of Present Illness HPI narrative: 72 yo M presents to urgent care with grandson at side. Pt states he accidentally bit the right side of his tongue 3 weeks ago and he has been having increased pain and swelling since. Pt reports pain down both sides of his throat and on the floor of his mouth. Pt reports difficulty swallowing and night sweats. Related Data Home Medications Medication Instructions Recorded Confirmed hydrocodone 10 mg-acetaminophen 2 tablet PO Q6H PRN Pain 07/16/19 03/31/23 325 mg tablet bupropion HCl 100 mg tablet,12 hr 100 mg PO DAILY 01/17/23 03/31/23 sustained-release (Wellbutrin SR) Allergies Allergy/AdvReac Type Severity Reaction Status Date / Time No Known Allergies Allergy Verified 03/31/23 12:05 Review of Systems Review of Systems: CONSTITUTIONAL: night sweats EYES: Denies visual changes, redness, or discharge. ENT: Denies otalgia and sore throat MOUTH: tongue pain and swelling. difficulty swallowing, painful swallowing. CARDIOVASCULAR: Denies chest pain, palpitations, or edema. RESPIRATORY: Denies cough or dyspnea. GASTROINTESTINAL: Denies abdominal pain, nausea, vomiting, or diarrhea. GENITOURINARY: Denies dysuria or hematuria. SKIN: Denies rash or itching. MUSCULOSKELETAL: Denies back pain, joint pain, or myalgia. NEUROLOGIC: Denies headache, numbness, or weakness. Pertinent positives per HPI. [facility] Past Medical History Medical History Anemia 73.09 Anxiety Anxiety and depression Arthritis Encounter for long-term (current) use of other medications Erectile dysfunction Fatigue GERD (gastroesophageal reflux disease) Hypersomnolence Surgical History Surgical History H/O cervical spine surgery History of lumbar spinal fusion History of right shoulder replacement History of total right knee replacement Hx of cholecystectomy Family History Family History Mother Family history of malignant neoplasm Grandparent Family history of malignant neoplasm Sibling Family history of malignant neoplasm Father Heart failure Social History Social History (Updated 09/23/22 @ 08:45 by Rosalba Roy MA) Smoking packs per day: 1 Smoking cigarettes per day: 20.0 Years smoked: 12 Smoking pack-years: 12.00 Smoking status: Former smoker Tobacco type: cigarettes Second hand tobacco smoke exposure: No Smoking end date: 08/08/78 Alcohol intake: current Drinks per week: 1 Alcohol use details: 1 mixed drink/beer per week Substance use: never Substance use type: does not use Lack of Transportation: No Lack of Food: Never True Current Housing: I Have Housing Concerned About Future Housing: No Difficulty Paying Gas/Electric Bills: No Difficulty Paying for Meds: No Currently Unemployed: No Education: High School Diploma/GED Difficulty w/ Childcare or Family Care: No Living arrangements: with family Additional living arrangements comments: lives with grandson Reese. Gender identity (if verbalized by the patient): Male Spiritual care concerns: No Comments At the time of my signature, I reviewed and agree with the nursing past medical, surgical, social, and family history. There is no relevant family history pertinent to the patient complaint. Exam Narrative: GENERAL: This is a well-nourished, well-developed patient, in no apparent distress. HEAD: normocephalic, atraumatic. EYES: Sclera clear/white. Vision is grossly intact. EARS: External ears normal, auditory canals clear and without drainage. Hearing grossly intact. NOSE: External nose normal with no obvious nasal discharge, nares without redness,
== END 2023-03-31 12:25 | disposition short-term general hospital (02) ==
PROVIDERS: Emergency Provider Nurse Practitioner Family; PCP Family Medicine
DX: K14.0 Glossitis (principal); Z87.891 Personal history of nicotine dependence; M19.90 Unspecified osteoarthritis, unspecified site; K21.9 Gastro-esophageal reflux disease without esophagitis; F41.9 Anxiety disorder, unspecified; F32.A Depression, unspecified; Z96.611 Presence of right artificial shoulder joint; Z96.651 Presence of right artificial knee joint
CPT/HCPCS: 99212; G0463